=== PATIENT | male | born 1985 | race Caucasian/White ===

== ENCOUNTER 2017-06-03 08:37 | Emergency (ER) | payer SELFPAY ==
[2017-06-03 09:02] VITALS: BP 125/74
[2017-06-03] MEDS ORDERED: TORADOL IM ONE (10:18)
[2017-06-03] MEDS ORDERED: NORCO 5/325 PO ONE (10:18)
[2017-06-03] MEDS ORDERED: FLEXERIL PO ONE (10:18)
--- NOTE | 2017-06-03 10:50 | XRay Report ---
LUMBOSACRAL SPINE, 3 VIEWS: History: Back pain Findings: There is mild dextrocurvature of the lumbar spine. The vertebral bodies, disk spaces and posterior elements are intact. No compression deformity or malalignment. Minimal degenerative endplate changes are noted at L2-3 and L3-4. The facet joints are unremarkable. The SI joints are symmetric and unremarkable. Impression: Mild scoliosis with minimal degenerative changes.
--- NOTE | 2017-06-03 10:51 | XRay Report ---
THORACIC SPINE: History: Back pain. The bones are normally mineralized with well preserved vertebral height, alignment and interspace distances. No paraspinal soft tissue widening is noted. IMPRESSION: Normal study.
[2017-06-03 11:05] LABS: Bilirubin,Urine NEG (Negative); Blood,Urine NEG (Negative); Ketones,Urine NEG (Negative); Leukocyte Esterase,Urine NEG (Negative); Nitrite,Urine NEG (Negative); Protein,Urine <15 mg/dL mg/dL (Negative); Urobilinogen,Urine < 2.0 mg/dL (<2.0)
--- NOTE | 2017-06-03 11:30 | Emergency Department Report ---
ED Back Pain/Injury HPI - General Chief Complaint: Back Pain/Injury Stated Complaint: BACK PAIN Source: patient Limitations: No Limitations - History of Present Illness Initial Comments: 31 year old male presents to ED with back pain. 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 patient is stable, neurologically intact and in no acute distress. patient denies dysuria, hematuria, discharge, incontinence, saddle anesthesia. MD Complaint: back pain -: Gradual Similar Symptoms Previously: No Place: work Radiation: none Severity: mild Quality: aching Consistency: constant Worsens With: movement, deep breaths/cough Context: while lifting, turning/twisting Associated Symptoms: denies other symptoms. denies: weakness, chest pain, numbness, difficulty walking, cough, difficulty urinating, incontinence, fever/ chills, nausea/vomiting - Related Data Previous Rx's Medication Instructions Recorded Last Taken Type Meloxicam [Mobic] 7.5 mg PO QDAY #5 tablet 06/03/17 Unknown Rx methOCARBAMOL [Robaxin TAB] 500 mg PO TID #15 tab 06/03/17 Unknown Rx Allergies Allergy/AdvReac Type Severity Reaction Status Date / Time No Known Allergies Allergy Unverified 06/03/17 09:00 ED Review of Systems ROS: Stated complaint: BACK PAIN Other details as noted in HPI Constitutional: denies: chills, fever Eyes: denies: eye pain, eye discharge, vision change ENT: denies: ear pain, throat pain Respiratory: denies: cough, shortness of breath, wheezing Cardiovascular: denies: chest pain, palpitations Endocrine: no symptoms reported Gastrointestinal: denies: abdominal pain, nausea, vomiting, diarrhea Genitourinary: denies: urgency, dysuria, frequency, hematuria, discharge Musculoskeletal: back pain. denies: joint swelling Skin: denies: rash, lesions Neurological: denies: headache, weakness, numbness, paresthesias, confusion, abnormal gait, vertigo Psychiatric: denies: anxiety, depression Hematological/Lymphatic: denies: easy bleeding, easy bruising ED Past Medical Hx - Past Medical History Previous Medical History?: No - Surgical History Past Surgical History?: No - Social History Smoking Status: Current Some Day Smoker Substance Use Type: Marijuana - Medications Home Medications: Home Medications Medication Instructions Recorded Confirmed Last Taken Type Meloxicam [Mobic] 7.5 mg PO QDAY #5 tablet 06/03/17 Unknown Rx methOCARBAMOL [Robaxin TAB] 500 mg PO TID #15 tab 06/03/17 Unknown Rx ED Physical Exam - General Limitations: No Limitations General appearance: alert, in no apparent distress - Head Head exam: Present: atraumatic, normocephalic - Eye Eye exam: Present: normal appearance - ENT ENT exam: Present: mucous membranes moist - Neck Neck exam: Present: normal inspection - Respiratory Respiratory exam: Present: normal lung sounds bilaterally. Absent: respiratory distress - Cardiovascular Cardiovascular Exam: Present: regular rate, normal rhythm. Absent: systolic murmur, diastolic murmur, rubs, gallop - GI/Abdominal GI/Abdominal exam: Present: soft, normal bowel sounds. Absent: distended, tenderness, guarding - Rectal Rectal exam: Present: deferred - Extremities Exam Extremities exam: Present: normal inspection, full ROM. Absent: tenderness - Back Exam Back exam: Present: normal inspection, full ROM, tenderness (mild tenderness to left side lower thoracic and upper lumbar) - Neurological Exam Neurological exam: Present: alert, oriented X3, normal gait, reflexes normal ( intact patellar reflexes bilaterally) - Psychiatric Psychiatric exam: Present: normal affect, normal mood - Skin Skin exam: Present: warm, dry, intact, normal color. Absent: rash ED Course Vital Signs 06/03/17 06/03/17 09:00 10:48 Temperature 98.6 F Pulse Rate 85 Respiratory 16 18 Rate Blood Pressure 125/74 O2 Sat by Pulse 100 Oximetry ED Medical Decision Making - Radiology Data Radiology results: report reviewed XR thoracic: normal study XR lumbar mild scoliosis with minimal degenerative changes. - Medical Decision Making 31 year old male presents to ED with back pain. patient has negative urine for UTI. patient has negative imaging study for t and l spine. patient is stable, neurologically intact and in no acute distress. patient is ambulatory. Critical care attestation.: If time is entered above; I have spent that time in minutes in the direct care of this critically ill patient, excluding procedure time. ED Disposition Clinical Impression: Back pain of thoracolumbar region Disposition: DC- TO HOME OR SELFCARE Is pt being admited?: No Does the pt Need Aspirin: No Condition: Stable Instructions: Low Back Strain (ED) Prescriptions: Meloxicam [Mobic] 7.5 mg PO QDAY #5 tablet methOCARBAMOL [Robaxin TAB] 500 mg PO TID #15 tab Referrals: PRIMARY CARE, [Primary Care Provider] - 3-5 Days Forms: Work/School Release Form(ED)
== END 2017-06-03 11:29 | disposition home or self-care (01) ==
LOC: ED 08:37
DX: M54.5 Low back pain (principal); F17.210 Nicotine dependence, cigarettes, uncomplicated; F12.10 Cannabis abuse, uncomplicated
CPT/HCPCS: 72072; 72100; 81001; 96372; 99284; J1885

== ENCOUNTER 2018-05-07 21:18 | Emergency (ER) | payer OTHER ==
[2018-05-07 22:32] VITALS: BP 133/70
[2018-05-07] MEDS ORDERED: TYLENOL ONE (22:35)
[2018-05-07] MEDS ORDERED: TYLENOL PO ONE (22:37)
== END 2018-05-08 01:25 | disposition left against medical advice (07) ==
LOC: ED 21:18
DX: Z53.21 Procedure and treatment not carried out due to patient leaving prior to being seen by health care provider (principal)

== ENCOUNTER 2022-06-09 08:24 | Emergency (ER) | payer SELFPAY ==
[2022-06-09 08:37] VITALS: BP 145/92
[2022-06-09] MEDS ORDERED: SODIUM CHLORIDE 0.9% 1000 ML 1,000 ML IV ONE (09:04)
[2022-06-09] MEDS ORDERED: KETOROLAC 30 MG/1 ML INJ IV ONE (09:19)
[2022-06-09 09:22] LABS: Color,Urine Yellow (Yellow)
[2022-06-09 09:24] LABS: Bacteria,Urine 1+ /HPF (Negative); Hyaline Casts,Urine 3 /LPF; Mucus,Urine FEW /HPF
[2022-06-09 09:25] LABS: Amphetamine Screen,Urine Negative; Benzodiazepines Screen,Urine Negative; Methadone Screen,Urine Negative
--- NOTE | 2022-06-09 09:29 | XRay Report ---
CHEST 1 VIEW 06/09/2022 9:09 AM INDICATION / CLINICAL INFORMATION: Dyspnea. COMPARISON: None available. FINDINGS: SUPPORT DEVICES: None. HEART / MEDIASTINUM: No significant abnormality. LUNGS / PLEURA: No significant pulmonary or pleural abnormality. No pneumothorax. ADDITIONAL FINDINGS: No significant additional findings. IMPRESSION: 1. No acute findings. Signer Name: Art Foss MD Signed: 06/09/2022 9:25 AM Workstation Name: [email or web address]
[2022-06-09 10:29] LABS: Basophils # (Auto) 0.1 K/mm3 (0.0-0.1); Basophils % (Auto) 1.2 % (0.0-1.8); Eosinophils # (Auto) 0.2 K/mm3 (0.0-0.4); Eosinophils % (Auto) 3.5 % (0.0-4.3); Hematocrit 37.5 % (35.5-45.6); Hemoglobin 12.4 gm/dl (11.8-15.2); Lymphocytes # (Auto) 1.9 K/mm3 (1.2-5.4); Lymphocytes % (Auto) 38.5 % (13.4-35.0); Mean Corpuscular HGB Conc 33 % (32-34); Mean Corpuscular Volume 98 fl (84-94); Monocytes # (Auto) 0.6 K/mm3 (0.0-0.8); Monocytes % (Auto) 12.3 % (0.0-7.3); Platelet Count 164 K/mm3 (140-440); Red Blood Count 3.84 M/mm3 (3.65-5.03); Red Cell Distribution Width 14.5 % (13.2-15.2)
[2022-06-09 10:36] LABS: Cannabinoid Screen,Urine Positive
[2022-06-09 10:37] LABS: Cocaine Screen,Urine Positive; Opiate Screen,Urine Positive
[2022-06-09 11:12] LABS: INR 0.91 (0.87-1.13)
--- NOTE | 2022-06-09 11:18 | Consultation ---
History of Present Illness - Reason for Consult Consult date: 06/09/22 Reason for consult: mental health evaluation - History of Present Psychiatric Illness The patient is a 36 year old male with history of Heroin abuse who presents to the ED for mental health evaluation. Patient seen today. He is calm, alert and oriented x4. He reports snorting about 1 gram of heroin daily x 1 year; last used yesterday. The patient states stressor as " missing grandma." No withdrawal symptom noted at this time. The patient denies any current suicidal/homicidal ideation and denies hallucinations. PAST PSYCHIATRIC HISTORY: Diagnoses: Denies Suicide attempts or Self-harm behavior: Denies Prior psychiatric hospitalizations: Denies Substance Abuse history: Denies Previous psychiatric medications tried: Denies Outpatient treatment: Denies PAST MEDICAL HISTORY: Family Psychiatric History: None reported SOCIAL HISTORY Marital Status: Single Living Arrangements: Lives with girl friend Employment Status: Unemployed Access to guns/weapons: Denies Education:12th grade History of Abuse: Denies Legal History: Unknown REVIEW OF SYSTEMS Constitutional: Negative for weight loss ENT: Negative for stridor Respiratory: Negative for cough or hemoptysis All other systems reviewed and are negative MENTAL STATUS General Appearance and Behavior: age appropriate, good eye contact, cooperative, Cooperation: Cooperative Psychomotor Behavior: within normal limits Mood: calm Affect and affective range: Congruent with stated mood Thought Process: goal directed Thought Content: Reality oriented Speech: Normal volume and Regular rate and rhythm Suicidal Ideation: Denies Homicidal Ideation: Denies HI Hallucinations: Denies Impulse Control: intact Insight and Judgment: Limited Memory: Limited Attention: Distracted Orientation: alert and oriented x4 Assessment Opioid use disorder Treatment Plan Continue home meds The patient is to get first dose of meds prior to leaving. Benefits and possible SE were explained to patient. She verbalizes understanding. Risks, benefits and alternatives of medications discussed with the patient, questions answered and consent obtained from patient. PSYCHOTHERAPY: Supportive psychotherapy provided MEDICAL: Per primary team DELIRIUM PRECAUTIONS: Please re-orient patient frequently, keep lights on during the day, and minimize benzodiazepines and opiates as these medications could worsen patient's confusion. 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 [facility] will provide patient with psychiatric outpatient resources. FOLLOW-UP: Will sign off. Thank you for the consult. Please contact with any questions and/or concerns Case discussed with Dr. Cordova who agrees with current disposition Medications and Allergies Medications and Allergies Allergies Allergy/AdvReac Type Severity Reaction Status Date / Time No Known Allergies Allergy Verified 06/09/22 08:32 Home Medications Medication Instructions Recorded Confirmed Last Taken Type Meloxicam [Mobic] 7.5 mg PO QDAY #5 tablet 06/03/17 Unknown Rx methOCARBAMOL [Robaxin TAB] 500 mg PO TID #15 tab 06/03/17 Unknown Rx Mental Status Exam - Vital signs Last Vital Signs Temp 98.4 F 06/09/22 08:36 Pulse 95 H 06/09/22 08:36 Resp 18 06/09/22 08:36 BP 145/92 06/09/22 08:36 Pulse Ox 100 06/09/22 08:36 Results Result Diagrams: 06/09/22 09:22 Abnormal lab results 06/09/22 06/09/22 06/09/22 Range/Units 08:42 09:22 09:22 MCV (84-94) fl Lymph % (Auto) (13.4-35.0) % Leon % (Auto) (0.0-7.3) % Total Creatine Kinase (55-170) units/L CK-MB (CK-2) (0.0-4.0) ng/mL Urine WBC (Auto) 7.0 H (0.0-6.0) /HPF Salicylates < 0.3 L (2.8-20.0) mg/dL Acetaminophen 5.0 L (10.0-30.0) ug/mL 06/09/22 06/09/22 06/09/22 Range/Units 09:22 09: 09:22 MCV 98 H (84-94) fl Lymph % (Auto) 38.5 H (13.4-35.0) % Leon % (Auto) 12.3 H (0.0-7.3) % Total Creatine Kinase 2102 H 2131 H (55-170) units/L CK-MB (CK-2) 12.0 H (0.0-4.0) ng/mL Urine WBC (Auto) (0.0-6.0) /HPF Salicylates (2.8-20.0) mg/dL Acetaminophen (10.0-30.0) ug/mL All other labs normal.
[2022-06-09 11:30] LABS: Alanine Aminotransferase 17 units/L (7-56); Albumin 4.5 g/dL (3.9-5); BUN/Creatinine Ratio 10; Blood Urea Nitrogen 12 mg/dL (9-20); Calcium 9.3 mg/dL (8.4-10.2); Hemolysis Index 29
--- NOTE | 2022-06-09 12:31 | Emergency Department Report ---
ED General Adult HPI - General Chief complaint: Psych Stated complaint: WITHDRAWL FEELING SUCIDIAL PUI?: No Time Seen by Provider: 06/09/22 09:02 Source: patient Mode of arrival: Ambulatory Limitations: No Limitations - History of Present Illness Initial comments: HERE FOR DETOX FROM HEROIN. LAST USED 24 HOURS AGO -: unknown Radiation: non-radiation Severity scale (0 -10): 3 Consistency: intermittent Improves with: none Worsens with: none Associated Symptoms: loss of appetite, malaise, weakness. denies: denies other symptoms, confusion, chest pain Treatments Prior to Arrival: none - Related Data Previous Rx's Medication Instructions Recorded Last Taken Type Meloxicam [Mobic] 7.5 mg PO QDAY #5 tablet 06/03/17 Unknown Rx methOCARBAMOL [Robaxin TAB] 500 mg PO TID #15 tab 06/03/17 Unknown Rx Allergies Allergy/AdvReac Type Severity Reaction Status Date / Time No Known Allergies Allergy Verified 06/09/22 08:32 ED Review of Systems ROS: Stated complaint: WITHDRAWL FEELING SUCIDIAL Other details as noted in HPI Constitutional: denies: chills, fever Eyes: denies: eye pain, eye discharge, vision change ENT: denies: ear pain, throat pain Respiratory: denies: cough, shortness of breath, wheezing Cardiovascular: denies: chest pain, palpitations Endocrine: no symptoms reported Gastrointestinal: denies: abdominal pain, nausea, diarrhea Genitourinary: denies: urgency, dysuria Musculoskeletal: denies: back pain, joint swelling, arthralgia Skin: denies: rash, lesions Neurological: denies: headache, weakness, paresthesias Psychiatric: denies: anxiety, depression Hematological/Lymphatic: denies: easy bleeding, easy bruising ED Past Medical Hx - Past Medical History Previous Medical History?: No Hx Hypertension: No - Surgical History Additional Surgical History: RIGHT LEG - Social History Smoking Status: Former Smoker Substance Use Type: None - Medications Home Medications: Home Medications Medication Instructions Recorded Confirmed Last Taken Type Meloxicam [Mobic] 7.5 mg PO QDAY #5 tablet 06/03/17 Unknown Rx methOCARBAMOL [Robaxin TAB] 500 mg PO TID #15 tab 06/03/17 Unknown Rx ED Physical Exam - General Limitations: No Limitations General appearance: alert, in no apparent distress - Head Head exam: Present: atraumatic, normocephalic - Eye Eye exam: Present: normal appearance - ENT ENT exam: Present: mucous membranes moist - Neck Neck exam: Present: normal inspection - Respiratory Respiratory exam: Present: normal lung sounds bilaterally. Absent: respiratory distress - Cardiovascular Cardiovascular Exam: Present: regular rate, normal rhythm. Absent: systolic murmur, diastolic murmur, rubs, gallop - GI/Abdominal GI/Abdominal exam: Present: soft, normal bowel sounds - Rectal Rectal exam: Present: deferred - Extremities Exam Extremities exam: Present: normal inspection - Back Exam Back exam: Present: normal inspection - Neurological Exam Neurological exam: Present: alert, oriented X3 - Psychiatric Psychiatric exam: Present: normal affect, normal mood - Skin Skin exam: Present: warm, dry, intact, normal color. Absent: rash ED Course Vital Signs 06/09/22 08:36 Temperature 98.4 F Pulse Rate 95 H Respiratory 18 Rate Blood Pressure 145/92 [Right] O2 Sat by Pulse 100 Oximetry ED Medical Decision Making - Lab Data Result diagrams: 06/09/22 09:22 06/09/22 Unknown - Radiology Data Radiology results: report reviewed, image reviewed - Medical Decision Making work up unremarkable noted drug screen , no SI or HI,assessed by [facility], will provide OP resources, not in withdrowal Critical care attestation.: If time is entered above; I have spent that time in minutes in the direct care of this critically ill patient, excluding procedure time. ED Disposition Clinical Impression: Heroin dependence Disposition: 01 HOME / SELF CARE / HOMELESS Is pt being admited?: No Does the pt Need Aspirin: No Condition: Stable Instructions: Opioid Pain Medicine Management, Opioid Use Disorder, Finding Treatment for Addiction Referrals: PRIMARY CARE, [Primary Care Provider] - 3-5 Days
== END 2022-06-09 13:15 | disposition home or self-care (01) ==
LOC: ED 08:24
DX: F11.20 Opioid dependence, uncomplicated (principal); R79.1 Abnormal coagulation profile; Z87.891 Personal history of nicotine dependence; Z79.899 Other long term (current) drug therapy
CPT/HCPCS: 36415; 71045; 80053; 80307; 81001; 82010; 82550; 82553; 83690; 84484; 85025; 85610; 86140; 96361; 96374; 99284; J1885; J7030; 80320; G0480

== ENCOUNTER 2022-06-12 08:32 | Emergency (ER) | payer SELFPAY ==
[2022-06-12 08:41] VITALS: BP 144/71
[2022-06-12 09:21] LABS: Mucus,Urine 3+ /HPF
[2022-06-12 09:26] LABS: Color,Urine Yellow (Yellow)
[2022-06-12 09:36] LABS: Amphetamine Screen,Urine Negative; Benzodiazepines Screen,Urine Negative; Methadone Screen,Urine Negative; Opiate Screen,Urine Negative
[2022-06-12 09:57] LABS: Cannabinoid Screen,Urine Positive; Cocaine Screen,Urine Positive
[2022-06-12 10:06] LABS: Basophils % (Auto) 0.9 % (0.0-1.8); Eosinophils # (Auto) 0.1 K/mm3 (0.0-0.4); Eosinophils % (Auto) 1.3 % (0.0-4.3); Hematocrit 36.2 % (35.5-45.6); Lymphocytes % (Auto) 18.6 % (13.4-35.0); Mean Corpuscular HGB Conc 33 % (32-34); Mean Corpuscular Volume 97 fl (84-94); Monocytes # (Auto) 0.3 K/mm3 (0.0-0.8); Monocytes % (Auto) 5.6 % (0.0-7.3); Platelet Count 163 K/mm3 (140-440); Red Blood Count 3.74 M/mm3 (3.65-5.03); Red Cell Distribution Width 14.5 % (13.2-15.2)
[2022-06-12 10:16] LABS: BUN/Creatinine Ratio 18; Blood Urea Nitrogen 16 mg/dL (9-20); Calcium 9.1 mg/dL (8.4-10.2); Hemolysis Index 3
== END 2022-06-13 01:44 | disposition left against medical advice (07) ==
LOC: ED 08:32
DX: Z00.8 Encounter for other general examination (principal); Z53.21 Procedure and treatment not carried out due to patient leaving prior to being seen by health care provider; Z79.899 Other long term (current) drug therapy
CPT/HCPCS: 36415; 80048; 80307; 80320; 81001; 85025; G0480